=== PATIENT | male | born 1960 | race Caucasian/White ===

== ENCOUNTER 2018-02-02 05:44 | Day surgery (SDC) | payer MEDICARE ==
[2018-02-02] MEDS ORDERED: PHENYLEPHRINE HCL IV ONE (05:45)
[2018-02-02] MEDS ORDERED: DIPRIVAN 200 MG/20 ML IV ONE (05:45)
[2018-02-02] MEDS ORDERED: Lactated Ringers 1,000 ML IV SCH (06:30)
[2018-02-02 08:59] VITALS: BP 149/88; PULSE 81; O2SAT 97
--- NOTE | 2018-02-03 07:40 | OP ---
SURGERY DATE/TIME: 02/02/2018 0741 PREOPERATIVE DIAGNOSES: 1) Rectal bleeding. 2) Need for screening colonoscopy. POSTOPERATIVE DIAGNOSES: 1) Normal colon. 2) External hemorrhoids. PROCEDURE: Colonoscopy. SURGEON: Deepak Coughlin M.D. ANESTHESIA: MAC by Rehan Kaufman CRNA. ESTIMATED BLOOD LOSS: None. SPECIMENS: None. DESCRIPTION OF PROCEDURE: After informed written consent was obtained, the patient was taken to the endoscopy suite. He underwent monitored anesthesia and digital rectal exam showed normal sphincter tone and no internal lesions. The scope was inserted into the rectum and sequentially the entire colonic mucosa was traversed. The level of cecum was reached and verified with direct visualization of ileocecal valve. Upon withdrawal careful mucosal inspection revealed no gross abnormalities. There was some mucus and liquid stool present in the colon. The prep was fair. Prior to withdrawal retroflexion was performed and showed some mild internal hemorrhoids. Upon withdrawal significant external hemorrhoids were noted. No other abnormalities were appreciable. The scope was removed and the patient was transferred to the recovery room in excellent condition.
== END 2018-02-02 09:12 | disposition home or self-care (01) ==
LOC: SDC 05:44
PROVIDERS: ATTEND Family Medicine
DX: K62.5 Hemorrhage of anus and rectum (principal); Z12.11 Encounter for screening for malignant neoplasm of colon; K64.4 Residual hemorrhoidal skin tags
CPT/HCPCS: J2370; J2704